=== PATIENT | male | born 1995 | race Caucasian/White ===

== ENCOUNTER 2024-03-19 15:19 | Emergency (ER) | payer BC ==
[~2024-03-19] VITALS: Ht 167.6 cm; Wt 72.5 kg
[2024-03-19 18:40] VITALS: BP 151/97; PULSE 90; RESP 18; TEMP 98.8; O2SAT 100
== END 2024-03-19 18:41 | disposition home or self-care (01) ==
LOC: ER 15:19
DX: S43.102A Unspecified dislocation of left acromioclavicular joint, initial encounter (principal); W19.XXXA Unspecified fall, initial encounter; Y93.23 Activity, snow (alpine) (downhill) skiing, snowboarding, sledding, tobogganing and snow tubing; Y92.89 Other specified places as the place of occurrence of the external cause; Y99.8 Other external cause status
CPT/HCPCS: 73030; 99284